=== PATIENT | female | born 1940 | race Caucasian/White ===

== ENCOUNTER 2021-06-27 13:13 | Inpatient (IN) | payer MEDICARE, OTHER ==
--- NOTE | 2021-06-27 13:26 | ED ---
General Adult HPI - General Chief complaint: Neuro Symptoms/Deficit Stated complaint: Stroke Time Seen by Provider: 06/27/21 13:16 Source: EMS, RN notes reviewed, old records reviewed Mode of arrival: EMS Limitations: altered mental status - History of Present Illness Initial comments: Patient is an 80-year-old female with past medical history remarkable for diabetes, hypothyroidism, hypertension, possible seizure disorder, who presents emergency Department as a code stroke. Patient woke up with symptoms. Apparently she was altered, minimally responsive at home. Mental status seems to be improving since arrival, however. She woke up with her symptoms. She is unable to provide much history. She is confused and is unable to follow commands. Patient is not on blood thinners. No known trauma.Baseline is alert and oriented 4. - Related Data Home Medications Medication Instructions Recorded Confirmed Aspirin EC [Ecotrin Low Dose] 81 mg PO DAILY 06/27/21 06/27/21 Atorvastatin Calcium [Lipitor] 80 mg PO W/SUPPER 06/27/21 06/27/21 Cholecalciferol [Vitamin D3 (125 125 mcg PO DAILY 06/27/21 06/27/21 Mcg = 5000 Iu)] DULoxetine HCL [Cymbalta] 60 mg PO BID 06/27/21 06/27/21 Doxepin HCl 50 mg PO HS 06/27/21 06/27/21 Gabapentin 800 mg PO DIRECTED 06/27/21 06/27/21 Glucosamine HCl/Chondroitin Vincent 1 cap PO DAILY 06/27/21 06/27/21 [Glucosamine-Chondroitin Cap] Insulin Glargine,Hum.rec.anlog 30 unit SQ BID@1200,2100 06/27/21 06/27/21 [Lantus Solostar Pen] Insulin Lispro [humaLOG Kwikpen] See Protocol SQ ACHS MDD 60 UNITS 06/27/21 06/27/21 Magnesium 250 mg PO DAILY 06/27/21 06/27/21 Phenytoin Sodium Extended 200 mg PO DIRECTED 06/27/21 06/27/21 [Dilantin] Rivaroxaban [Xarelto] 2.5 mg PO DIRECTED 06/27/21 06/27/21 Triamterene-Hctz 37.5-25Mg 1 tab PO DIRECTED 06/27/21 06/27/21 [Maxzide 37.5-25] atenoloL 100 mg PO HS 06/27/21 06/27/21 Allergies Allergy/AdvReac Type Severity Reaction Status Date / Time codeine Allergy Rash/Hives Verified 06/27/21 14:40 Review of Systems ROS Statement: Those systems with pertinent positive or pertinent negative responses have been documented in the HPI. Unable to obtain secondary to patient's clinical status. ROS Other: All systems not noted in ROS Statement are negative. Past Medical History Past Medical History: Unable to Obtain History of Any Multi-Drug Resistant Organisms: Unobtainable Past Surgical History: Unable to Obtain Past Psychological History: Unable to Obtain Smoking Status: Unknown if ever smoked Past Alcohol Use History: Unable to Obtain Past Drug Use History: Unable to Obtain General Exam - General Exam Comments Initial Comments: General: Appears in mild distress and confused. HEAD: Normal with no signs of head trauma. EYES: PERRLA, EOMI, conjunctiva normal, no discharge. Pupils are 2+ and equal bilaterally. ENT: Hearing grossly intact, normal oropharynx. RESPIRATORY: Clear breath sounds bilaterally. No wheezes, rales, or rhonchi. C/V: Regular rate and rhythm. S1 and S2 auscultated, no edema, peripheral pulses 2+ and intact throughout ABD: Abd is soft, nontender, nondistended EXT: Reduced motion in the right lower extremity, with some effort against gravity. Actively moving all other extremity is. No obvious deformities. SKIN: No rashes or lesions observed on exposed skin. NEURO: Alert but oriented 0. NIH is approximately 8, for right lower extremity weakness, aphasia, being unable to follow commands, being unable to answer month and age. GCS is 15. Limitations: altered mental status Course Vital Signs 06/27/21 06/27/21 06/27/21 13:16 13:20 16:50 Pulse Rate 98 97 63 Respiratory 16 18 18 Rate Blood Pressure 148/95 161/84 133/87 O2 Sat by Pulse 97 97 Oximetry 06/27/21 06/27/21 18:39 19:53 Pulse Rate 81 81 Respiratory 18 19 Rate Blood Pressure 167/81 170/97 O2 Sat by Pulse 97 96 Oximetry Medical Decision Making - Medical Decision Making Patient presents as a wake-up altered mental status, suspect stroke. Patient is not a TPA candidate because of this. The benefits of administering TPA with an unknown onset are far outweighed by the risks of administering it. Therefore patient was made a code stroke. When care sugar was within normal limits. Altered mental status labs were ordered. We will also obtain Dilantin levels, as it does appear she is on a medication. CT imaging will be obtained. I spoke with Dr. Monet neuro intervention who was in agreement this plan. Patient is not a TPA candidate. He did review the CT imaging as stated the radiologist, both CT angiogram and noncontrast CTs showed no acute intracranial processes. Recommended medical management. Patient is given an aspirin. On reevaluation at this time, patient is improved. She is more alert and slight ly more oriented. She is moving all 4 extremities now. NIH is now approximately 1 or 2 primarily for confusion. She is following commands. She cannot recall what happened. Chest x-ray revealed no acute cardiopulmonary process. EKG showed no acute ischemic changes. Laboratory studies were patito rkable for a anion gap metabolic acidosis with a carbon dioxide of 19 and gap of 18. This is likely secondary to lactic acidosis as her lactate is 5.6. Repeat following multiple fluid boluses is 3.6. Troponin is negative. Urinalysis is remarkable for possibly a small urinary tract infection. She'll be started on Rocephin. UDS is positive for opiates. Dilantin level is undetectable. Family arrived at the emergency department. He states that she has been like this since this morning when she woke up. Her mental status now is improved but not back to baseline. She is normally alert and oriented 4. Family his poor historians otherwise. Unaware of medications that she is taking at home or not. I discussed with them that the patient will be admitted at this time for further neurological evaluation. There were no agreement with this plan. I spoke with Dr. Wilson of neurology who will evaluate the patient. He was in agreement with this plan. I also spoke with the admitting team, Dr. Whitley who accepted the patient. Patient was therefore admitted in serious condition. Differential at this time includes possible TIA versus UTI causing her encephalopathy. Cannot rule out postictal state secondary to seizures, she is no longer taking her Dilantin. Lactic acid was elevated which does support this but we will follow up. Repeat lactic acid did return while is still present in the emergency department. As it was still elevated, and she had adequate fluid hydration by this point, I will start her on empiric antibiotics. Vital signs remain within normal limits and stable at this time. Source of infection is likely the urine, however blood cultures were sent. - Lab Data Result diagrams: 06/27/21 13:22 06/27/21 13:22 Lab Results 06/27/21 06/27/21 06/27/21 Range/Units 13:18 13:22 13:22 WBC 6.2 (3.8-10.6) k/uL RBC 4.51 (3.80-5.40) m/uL Hgb 14.9 (11.4-16.0) gm/dL Hct 43.7 (34.0-46.0) % MCV 96.9 (80.0-100.0) fL MCH 33.1 (25.0-35.0) pg MCHC 34.1 (31.0-37.0) g/dL RDW 13.1 (11.5-15.5) % Plt Count 186 (150-450) k/uL MPV 7.9 Neutrophils % 61 % Lymphocytes % 33 % Monocytes % 4 % Eosinophils % 1 % Basophils % 0 % Neutrophils # 3.8 (1.3-7.7) k/uL Lymphocytes # 2.1 (1.0-4.8) k/uL Monocytes # 0.2 (0-1.0) k/uL Eosinophils # 0.0 (0-0.7) k/uL Basophils # 0.0 (0-0.2) k/uL PT 10.0 (9.0-12.0) sec INR 0.9 (<1.2) APTT 20.1 L (22.0-30.0) sec Sodium (137-145) mmol/L Potassium (3.5-5.1) mmol/L Chloride (98-107) mmol/L Carbon Dioxide (22-30) mmol/L Anion Gap mmol/L BUN (7-17) mg/dL Creatinine (0.52-1.04) mg/dL Est GFR (CKD-EPI)AfAm (>60 ml/min/1.73 sqM) Est GFR (CKD-EPI)NonAf (>60 ml/min/1.73 sqM) Glucose (74-99) mg/dL POC Glucose (mg/dL) 214 H (75-99) mg/dL POC Glu [employer] ID [place], Teresa Lactic Ac Sepsis Rflx Plasma Lactic Acid Alex (0.7-2.0) mmol/L Calcium (8.4-10.2) mg/dL Total Bilirubin (0.2-1.3) mg/dL AST (14-36) U/L ALT (4-34) U/L Alkaline Phosphatase (38-126) U/L Ammonia (<30) umol/L Troponin I (0.000-0.034) ng/mL Total Protein (6.3-8.2) g/dL Albumin (3.5-5.0) g/dL Urine Color Urine Appearance (Clear) Urine pH (5.0-8.0) Ur Specific [place] (1.001-1.035) Urine Protein (Negative) Urine Glucose (UA) (Negative) Urine Ketones (Negative) Urine Blood (Negative) Urine Nitrite (Negative) Urine Bilirubin (Negative) Urine Urobilinogen (<2.0) mg/dL Ur Leukocyte Esterase (Negative) Urine RBC (0-5) /hpf Urine WBC (0-5) /hpf Ur Squamous Epith Cells (0-4) /hpf Urine Bacteria (None) /hpf Urine Opiates Screen (NotDetected) Ur Oxycodone Screen (NotDetected) Urine Methadone Screen (NotDetected) Ur Propoxyphene Screen (NotDetected) Ur Barbiturates Screen (NotDetected) Phenytoin ug/mL U Tricyclic Antidepress (NotDetected) Ur Phencyclidine Scrn (NotDetected) Ur Amphetamines Screen (NotDetected) U Methamphetamines Scrn (NotDetected) U Benzodiazepines Scrn (NotDetected) Urine Cocaine Screen (NotDetected) U Marijuana (THC) Screen (NotDetected) 06/27/21 06/27/21 06/27/21 Range/Units 13:22 13:22 13:45 WBC (3.8-10.6) k/uL RBC (3.80-5.40) m/uL Hgb (11.4-16.0) gm/dL Hct (34.0-46.0) % MCV (80.0-100.0) fL MCH (25.0-35.0) pg MCHC (31.0-37.0) g/dL RDW (11.5-15.5) % Plt Count (150-450) k/uL MPV Neutrophils % % Lymphocytes % % Monocytes % % Eosinophils % % Basophils % % Neutrophils # (1.3-7.7) k/uL Lymphocytes # (1.0-4.8) k/uL Monocytes # (0-1.0) k/uL Eosinophils # (0-0.7) k/uL Basophils # (0-0.2) k/uL PT (9.0-12.0) sec INR (<1.2) APTT (22.0-30.0) sec Sodium 140 (137-145) mmol/L Potassium 3.4 L (3.5-5.1) mmol/L Chloride 103 (98-107) mmol/L Carbon Dioxide 19 L (22-30) mmol/L Anion Gap 18 mmol/L BUN 12 (7-17) mg/dL Creatinine 0.75 (0.52-1.04) mg/dL Est GFR (CKD-EPI)AfAm 86 (>60 ml/min/1.73 sqM) Est GFR (CKD-EPI)NonAf 75 (>60 ml/min/1.73 sqM) Glucose 224 H (74-99) mg/dL POC Glucose (mg/dL) (75-99) mg/dL POC Glu [employer] S[employer] ID Lactic Ac Sepsis Rflx Plasma Lactic Acid Alex 5.6 H* (0.7-2.0) mmol/L Calcium 9.8 (8.4-10.2) mg/dL Total Bilirubin 0.6 (0.2-1.3) mg/dL AST 41 H (14-36) U/L ALT 28 (4-34) U/L Alkaline Phosphatase 78 (38-126) U/L Ammonia <9 (<30) umol/L Troponin I <0.012 (0.000-0.034) ng/mL Total Protein 7.6 (6.3-8.2) g/dL Albumin 4.6 (3.5-5.0) g/dL Urine Color Urine Appearance (Clear) Urine pH (5.0-8.0) Ur Specific [place] (1.001-1.035) Urine Protein (Negative) Urine Glucose (UA) (Negative) Urine Ketones (Negative) Urine Blood (Negative) Urine Nitrite (Negative) Urine Bilirubin (Negative) Urine Urobilinogen (<2.0) mg/dL Ur Leukocyte Esterase (Negative) Urine RBC (0-5) /hpf Urine WBC (0-5) /hpf Ur Squamous Epith Cells (0-4) /hpf Urine Bacteria (None) /hpf Urine Opiates Screen (NotDetected) Ur Oxycodone Screen (NotDetected) Urine Methadone Screen (NotDetected) Ur Propoxyphene Screen (NotDetected) Ur Barbiturates Screen (NotDetected) Phenytoin <3.0 ug/mL U Tricyclic Antidepress (NotDetected) Ur Phencyclidine Scrn (NotDetected) Ur Amphetamines Screen (NotDetected) U Methamphetamines Scrn (NotDetected) U Benzodiazepines Scrn (NotDetected) Urine Cocaine Screen (NotDetected) U Marijuana (THC) Screen (NotDetected) 06/27/21 06/27/21 Range/Units 14:07 14:30 WBC (3.8-10.6) k/uL RBC (3.80-5.40) m/uL Hgb (11.4-16.0) gm/dL Hct (34.0-46.0) % MCV (80.0-100.0) fL MCH (25.0-35.0) pg MCHC (31.0-37.0) g/dL RDW (11.5-15.5) % Plt Count (150-450) k/uL MPV Neutrophils % % Lymphocytes % % Monocytes % % Eosinophils % % Basophils % % Neutrophils # (1.3-7.7) k/uL Lymphocytes # (1.0-4.8) k/uL Monocytes # (0-1.0) k/uL Eosinophils # (0-0.7) k/uL Basophils # (0-0.2) k/uL PT (9.0-12.0) sec INR (<1.2) APTT (22.0-30.0) sec Sodium (137-145) mmol/L Potassium (3.5-5.1) mmol/L Chloride (98-107) mmol/L Carbon Dioxide (22-30) mmol/L Anion Gap mmol/L BUN (7-17) mg/dL Creatinine (0.52-1.04) mg/dL Est GFR (CKD-EPI)AfAm (>60 ml/min/1.73 sqM) Est GFR (CKD-EPI)NonAf (>60 ml/min/1.73 sqM) Glucose (74-99) mg/dL POC Glucose (mg/dL) (75-99) mg/dL POC Glu [employer]house Sorter ID Lactic Ac Sepsis Rflx Y Plasma Lactic Acid Alex (0.7-2.0) mmol/L Calcium (8.4-10.2) mg/dL Total Bilirubin (0.2-1.3) mg/dL AST (14-36) U/L ALT (4-34) U/L Alkaline Phosphatase (38-126) U/L Ammonia (<30) umol/L Troponin I (0.000-0.034) ng/mL Total Protein (6.3-8.2) g/dL Albumin (3.5-5.0) g/dL Urine Color Light Yellow Urine Appearance Cloudy H (Clear) Urine pH 6.5 (5.0-8.0) Ur Specific [place] 1.027 (1.001-1.035) Urine Protein Trace H (Negative) Urine Glucose (UA) 3+ H (Negative) Urine Ketones 1+ H (Negative) Urine Blood Small H (Negative) Urine Nitrite Negative (Negative) Urine Bilirubin Negative (Negative) Urine Urobilinogen <2.0 (<2.0) mg/dL Ur Leukocyte Esterase Large H (Negative) Urine RBC 2 (0-5) /hpf Urine WBC 18 H (0-5) /hpf Ur Squamous Epith Cells 4 (0-4) /hpf Urine Bacteria Rare H (None) /hpf Urine Opiates Screen Detected H (NotDetected) Ur Oxycodone Screen Not Detected (NotDetected) Urine Methadone Screen Not Detected (NotDetected) Ur Propoxyphene Screen Not Detected (NotDetected) Ur Barbiturates Screen Not Detected (NotDetected) Phenytoin ug/mL U Tricyclic Antidepress Not Detected (NotDetected) Ur Phencyclidine Scrn Not Detected (NotDetected) Ur Amphetamines Screen Not Detected (NotDetected) U Methamphetamines Scrn Not Detected (NotDetected) U Benzodiazepines Scrn Not Detected (NotDetected) Urine Cocaine Screen Not Detected (NotDetected) U Marijuana (THC) Screen Not Detected (NotDetected) - EKG Data -: EKG Interpreted by Me EKG Comments: 12-lead Electrocardiogram Interpretation Note EKG was reviewed and interpreted by myself. 12-lead ECG performed at 1339 is interpreted by me as revealing normal sinus rhythm with a PVC at a rate of 93 beats per minute. [place] is normal. [place] interval is 201 ms, QRS duration is 92 ms, QTc is 381 ms.. There were no ST or T wave abnormalities to suggest myocardial ischemia or injury. R wave progression across the precordium was satisfactory. By my interpretation this EKG is non-diagnostic for acute ischemia. Critical Care Time Critical Care Time: Yes Total Critical Care Time: 35 Critical Care Time: Upon my evaluation, this patient had a high probability of imminent or life-threatening deterioration due to acute encephalopathy of unknown etiology, likely secondary to seizure versus stroke versus infection, which required my direct attention, intervention, and personal management. I have personally provided 35 minutes of critical care time exclusive of time spent on separately billable procedures. Time includes review of laboratory data, radiology results, discussion with consultants, and monitoring for potential decompensation. Interventions were performed as documented in my note. Disposition Clinical Impression: Encephalopathy, Seizure, TIA (transient ischemic attack), UTI (urinary tract infection), Lactic acidosis, Confusion Disposition: ADMITTED IP TO THIS HOSP Condition: Serious
[2021-06-27 13:32] LABS: Glucose,Whole Blood 214 mg/dL (75-99)
[2021-06-27 13:38] LABS: Basophils % (A) 0 %; Eosinophils % (A) 1 %; HCT 43.7 % (34.0-46.0); HGB 14.9 gm/dL (11.4-16.0); Lymphocytes # (A) 2.1 k/uL (1.0-4.8); Lymphocytes % (A) 33 %; MCH 33.1 pg (25.0-35.0); MCHC 34.1 g/dL (31.0-37.0); MCV 96.9 fL (80.0-100.0); Mean Platelet Volume 7.9; Monocytes # (A) 0.2 k/uL (0-1.0); Monocytes % (A) 4 %; Neutrophils # (A) 3.8 k/uL (1.3-7.7); Neutrophils % (A) 61 %; Platelet Count 186 k/uL (150-450); RBC 4.51 m/uL (3.80-5.40); RDW 13.1 % (11.5-15.5); WBC 6.2 k/uL (3.8-10.6)
--- NOTE | 2021-06-27 13:38 | CT ---
EXAMINATION TYPE: CT brain wo con for TPA DATE OF EXAM: 06/27/2021 HISTORY: altered mental status CT DLP: 1071.8 mGycm. Automated Exposure Control for Dose Reduction was Utilized. TECHNIQUE: CT scan of the head is performed without contrast. COMPARISON: None. FINDINGS: There is no acute intracranial hemorrhage or midline shift identified. There is mild-to-m oderate diffuse ventricular and sulcal prominence consistent with diffuse cerebral atrophy greatest o soheila the bilateral frontal and temporal lobes. There is mild low-attenuation in the periventricular w amaury matter consistent with chronic small vessel ischemic change. There is 1.3 cm mucous retention [address] st or polyp in the posterior superior left maxillary sinus otherwise the globes are intact and the vi sualized sinuses are clear. IMPRESSION: No acute intracranial hemorrhage or midline shift. There is mild to moderate diffuse ce rebral atrophy and mild chronic small vessel ischemic change noted.
[2021-06-27 13:52] LABS: ALT 28 U/L (4-34); AST 41 U/L (14-36); African American GFR (CKD) 86 (>60 ml/min/1.73 sqM); Albumin 4.6 g/dL (3.5-5.0); Alkaline Phosphatase 78 U/L (38-126); Anion Gap 18 mmol/L; Blood Urea Nitrogen 12 mg/dL (7-17); Calcium 9.8 mg/dL (8.4-10.2); Carbon Dioxide 19 mmol/L (22-30); Chloride 103 mmol/L (98-107); Glucose 224 mg/dL (74-99); Non-African American GFR(CKD) 75 (>60 ml/min/1.73 sqM); Phenytoin (Dilantin) <3.0 ug/mL; Potassium 3.4 mmol/L (3.5-5.1); Sodium 140 mmol/L (137-145); Total Bilirubin 0.6 mg/dL (0.2-1.3); Total Protein 7.6 g/dL (6.3-8.2)
--- NOTE | 2021-06-27 13:57 | CT ---
EXAMINATION TYPE: CT angio head neck DATE OF EXAM: 06/27/2021 HISTORY: altered mental status, code stroke COMPARISON: None. CT DLP: 610 mGycm. Automated Exposure Control for Dose Reduction was Utilized. TECHNIQUE: CTA scan of the head and neck are performed with IV Contrast, patient injected with 65 mL of Isovue 370, axial images are obtained, coronal and sagittal reformatted images are reviewed. 3D r econstructed images are created on an independent workstation and reviewed. FINDINGS: Carotid/Vascular Structures: Mild peripheral calcified plaque in the arch. Bovine type aortic arch. N ormal origin right common carotid artery from the brachiocephalic. Tortuous medial course to the bila teral common carotid arteries. Mild to moderate peripheral plaque in the proximal right internal cruz tid artery just past carotid bulb without significant stenosis. Left side shows more moderate to che re calcified plaque causing stenosis approaching but under 50% patent external carotid arteries bilat erally without significant stenosis. There is dominant left vertebral artery with tapering but patent small caliber right vertebral artery to the basilar junction. There is no significant focal stenosis or aneurysm. There are patent bilate ral posterior communicating arteries filling the posterior cerebral arteries. Patent anterior communi cating artery is identified. No aneurysm in the anterior circulation. Other: Multilevel uncovertebral facet degenerative changes bilaterally. Multilevel spurring in the sp ine. IMPRESSION: No significant stenosis in the common or internal carotid arteries. No significant steno sis or aneurysm at level of [place] of [place]. NASCET criteria was used in interpretation of this exam?
[2021-06-27 14:11] LABS: INR 0.9 (<1.2)
[2021-06-27 14:13] LABS: Partial Thromboplastin Time 20.1 sec (22.0-30.0)
[2021-06-27] MEDS ORDERED: PHENYTOIN SODIUM INJ 1,000 MG in SODIUM CHLORIDE 0.9% 100 ML IVPB STA (14:16)
[2021-06-27 14:29] LABS: Lactic Acid, Venous 5.6 mmol/L (0.7-2.0)
[2021-06-27] MEDS ORDERED: SODIUM CHLORIDE 0.9% 1,000 ML IV STA ×3 (14:30→15:06)
[2021-06-27 14:37] LABS: Appearance,Urine Cloudy (Clear); Bacteria,Urine Rare /hpf; Bilirubin,Urine Negative (Negative); Blood,Urine Small (Negative); Color,Urine Light Yellow; Glucose,Urine (UA) 3+ (Negative); Ketones,Urine 1+ (Negative); Leukocyte Esterase,Urine Large (Negative); Nitrite,Urine Negative (Negative); PH, Urine 6.5 (5.0-8.0); Protein,Urine Trace (Negative); RBC,Urine 2 /hpf (0-5); Specific Gravity,Urine 1.027 (1.001-1.035); Squamous Epithelial Cell,Urine 4 /hpf (0-4); Urobilinogen,Urine <2.0 mg/dL (<2.0); WBC,Urine 18 /hpf (0-5)
[2021-06-27 14:40] LABS: Amphetamine Screen,Urine Not Detected (NotDetected); Barbiturate Screen,Urine Not Detected (NotDetected); Benzodiazepines Screen,Urine Not Detected (NotDetected); Cocaine Screen,Urine Not Detected (NotDetected); Methadone Screen, Urine Not Detected (NotDetected); Opiate Screen,Urine Detected (NotDetected); Oxycodone Screen, Urine Not Detected (NotDetected); Phencyclidine Screen,Urine Not Detected (NotDetected); Tricyclic Antidepressant,Urine Not Detected (NotDetected); Urn Cannabinoid Scrn Not Detected (NotDetected)
[2021-06-27] MEDS ORDERED: ASPIRIN 325 MG TAB PO STA (15:08)
[2021-06-27] MEDS ORDERED: LOPERAMIDE 2 MG CAP PO PRN (15:40)
[2021-06-27] MEDS ORDERED: MAG HYDROX/AL HYDROX/SIMETH 30 ML CUP PO PRN (15:40)
[2021-06-27] MEDS ORDERED: NALOXONE 0.4 MG/ML 1 ML VIAL IV PRN (15:40)
[2021-06-27] MEDS ORDERED: ONDANSETRON 4 MG/2 ML VIAL IVP PRN (15:40)
[2021-06-27] MEDS ORDERED: CALCIUM CARBONATE 500 MG CHEWABLE PO PRN (15:40)
[2021-06-27] MEDS ORDERED: LORazepam 2 MG/ML INJ IV PRN (15:40)
[2021-06-27] MEDS ORDERED: ACETAMINOPHEN TAB 325 MG TAB PO PRN (15:40)
--- NOTE | 2021-06-27 15:46 | P.CNNES ---
History of Present Illness Consult date: 06/27/21 Requesting physician: Michele Ramos Reason for Consult: stroke vs seizure History of Present Illness: This is an 80-year-old woman with medical history of possible seizure (per ed team), diabetes mellitus, hypertension, hypothyroidism who presented to the emergency department for altered mental status. History is obtained from ED attending. Per the ED patient to the emergency department as a code stroke and was minimally responsive at home but seems to be improving on arrival. It seems at baseline patient is oriented 4. Upon seeing the patient she continues to be confused and unable to provide history. Patient is at bedside and he is a poor historian. Upon asking him if patient has history of seizure he said he does not know. He said patient was not waking-up today in the AM and had her eyes closed. He said he cannot think right now and could tell me what transpired other than she went to bed possibly at 9pm yesterday. Initially he said she was confused yesterday at night but got worse today in the AM but later he said she was not confused last night. He could not tell me if she was having any jerking of extremities. He could not tell me what medication she is on. Per EMR patient home medication consist of Dilantin 200 mg extended release one tablet twice a day, Xarelto 2.5 mg 1 tablet twice a day, gabapentin 800 mg 1 tablet 3 times a day, Humalog, doxepin, Cymbalta, atenolol, Lipitor 80 mg at supper, triamterene hydrochlorothiazide. Some of the workup in the hospital consisted of: Initial vital signs his blood pressure of 148/95, heart rate of 98, respiratory of 16, pulse ox of 97% at room air. CBC with differential is unremarkable Initial serum glucose is 224, POC glucose 214, creatinine 0.75, sodium is 140, calcium is 9.8, AST is 41, ALT of 28. Ammonia level less than 9. Plasma lactic acid venous 5.6 Urinalysis it's cloudy, the leukocyte esterase was large, urine white blood cell is 18 and urine bacteria was rare. Rule out acute urinary tract infection Urine drug screen is positive for opiate otherwise rests is on detected and the patient the phenytoin level is less than 3.0 PT, PTT and INR is unremarkable. CT of the head is reported as no acute intracranial hemorrhage or midline shift. There is mild to moderate diffuse cerebral atrophy and mild chronic small vessel ischemic changes noted. I personally reviewed the CT of the head and there is no acute or subacute ischemia and there is no intracranial hemorrhage. I agree with the report that. CT angiography of the head and neck is reported as no significant stenosis in the common or internal carotid artery. No significant stenosis or aneurysm at the level [place] of [place]. Per the ED team patient had the altered mental status and the suspected stroke is not a TPA candidate because was awake up stroke and the patient was outside the window Review of Systems Review of system is limited but the per positive and negative as per HPI Past Medical History Past Medical History: Unable to Obtain History of Any Multi-Drug Resistant Organisms: Unobtainable Past Surgical History: Unable to Obtain Past Psychological History: Unable to Obtain Smoking Status: Unknown if ever smoked Past Alcohol Use History: Unable to Obtain Past Drug Use History: Unable to Obtain Medications and Allergies Home Medications Medication Instructions Recorded Confirmed Type Aspirin EC [Ecotrin Low Dose] 81 mg PO DAILY 06/27/21 06/27/21 History Atorvastatin Calcium [Lipitor] 80 mg PO W/SUPPER 06/27/21 06/27/21 History Cholecalciferol [Vitamin D3 (125 125 mcg PO DAILY 06/27/21 06/27/21 History Mcg = 5000 Iu)] DULoxetine HCL [Cymbalta] 60 mg PO BID 06/27/21 06/27/21 History Doxepin HCl 50 mg PO HS 06/27/21 06/27/21 History Gabapentin 800 mg PO DIRECTED 06/27/21 06/27/21 History Glucosamine HCl/Chondroitin Vincent 1 cap PO DAILY 06/27/21 06/27/21 History [Glucosamine-Chondroitin Cap] Insulin Glargine,Hum.rec.anlog 30 unit SQ BID@1200,2100 06/27/21 06/27/21 History [Lantus Solostar Pen] Insulin Lispro [humaLOG Kwikpen] See Protocol SQ ACHS MDD 60 UNITS 06/27/21 06/27/21 History Magnesium 250 mg PO DAILY 06/27/21 06/27/21 History Phenytoin Sodium Extended 200 mg PO DIRECTED 06/27/21 06/27/21 History [Dilantin] Rivaroxaban [Xarelto] 2.5 mg PO DIRECTED 06/27/21 06/27/21 History Triamterene-Hctz 37.5-25Mg 1 tab PO DIRECTED 06/27/21 06/27/21 History [Maxzide 37.5-25] atenoloL 100 mg PO HS 06/27/21 06/27/21 History Allergies Allergy/AdvReac Type Severity Reaction Status Date / Time codeine Allergy Rash/Hives Verified 06/27/21 14:40 Physical Examination - Vital Signs Vital Signs: Vital Signs Pulse Resp BP Pulse Ox 06/27/21 13:20 97 18 161/84 97 06/27/21 13:16 98 16 148/95 Intake and Output 06/26/21 06/27/21 06/27/21 22:59 06:59 14:59 Other: Weight 89.63 kg GENERAL: The patient is lying in bed and seems in mild acute distress. She seems restless. HENT: No nuchal rigidity. CHEST: The heart rate is regular rate rhythm. No murmurs to auscultation. LUNG: Clear to auscultation bilaterally no wheezing noted throughout. Not labored breathing. ABDOMEN/GI: Bowel sounds present in all 4 quadrants. No tenderness to palpation throughout. NEUROLOGICAL: Limited because of her condition. Higher mental function: The patient is awake, alert, oriented to her first name. She is very confused and has garbled speech. She could not name objects. Is following few simple commands. Canial nerves: The pupils are round, equal and reactive to light. Is tracking throughout the room. No facial weakness. No dysarthria. Has dry blood product around her mouth. Otherwise the rest of cranial nerves are limited because of her condition. Motor: Gait is deferred because of cooperation. The strength: Individual muscle is limited in assessing because of cooperation. Patient is able to raise bilateral upper and lower extremities briefly above gravity. Normal tone and bulk. Cerebellum: Could not assess. Sensation: Could not assess. Reflexes (right/left): 1+ throughout. Plantars is questionable upgoing over the right. Mute over the left. Results - Laboratory Findings CBC and BMP: 06/27/21 13:22 06/27/21 13:22 Abnormal Lab Findings: Abnormal Labs 06/27/21 06/27/21 06/27/21 13:18 13:22 13:22 APTT 20.1 L Potassium 3.4 L Carbon Dioxide 19 L Glucose 224 H POC Glucose (mg/dL) 214 H Plasma Lactic Acid Alex AST 41 H Urine Appearance Urine Protein Urine Glucose (UA) Urine Ketones Urine Blood Ur Leukocyte Esterase Urine WBC Urine Bacteria Urine Opiates Screen 06/27/21 06/27/21 13:45 14:07 APTT Potassium Carbon Dioxide Glucose POC Glucose (mg/dL) Plasma Lactic Acid Alex 5.6 H* AST Urine Appearance Cloudy H Urine Protein Trace H Urine Glucose (UA) 3+ H Urine Ketones 1+ H Urine Blood Small H Ur Leukocyte Esterase Large H Urine WBC 18 H Urine Bacteria Rare H Urine Opiates Screen Detected H Assessment and Plan Assessment: Breakthrough seizure (came in confused, dry blood product around the mouth and had elevated lactic acid and her mentation is minimally improving) and appears patient is non-compliant with medication (her Dilantin is subtherapeutic <3.0). History of reported seizure (unable to ascertain that info from ) Diabetes mellitus Hypertension Hypothryoidism Plan: Patient was loaded with Dilantin at thousand milligrams once in the ED. Patient was restarted on her home dose of Dilantin 200 mg extended release 1 tablet twice a day Every 4 hours neuro checks Placed the patient on seizure precautions seizure pads Ordered a routine EEG. There is no EEG in our facility and she is on Dilantin but could not tell me about her medical history and about her reported history of seizure. I ordered MRI of the brain with and without Consulted PT, OT and [employer] are consulted. Every 4 hours neuro checks Urine culture is ordered and is pending. We'll defer the rest of the medical management to the primary team. The plan is discussed with the ED attending and patient's . Thank you for the consultation. Hadley Wilson M.D. Neuro-hospitalist Time with Patient: Greater than 30
--- NOTE | 2021-06-27 15:55 | P.HPIM ---
History of Present Illness H&P Date: 06/27/21 Is an 80-year-old female with past medical history of diabetes hypertension likely A. fib and also remote history of seizures for which she was supposed to take Dilantin apparently patient has not been taking Dilantin as Dilantin level is 0 and has not been filled for the last few months admitted to the hospital with weakness patient went to sleep was doing okay and then was awake with weakness in the left lower extremity and confusion patient currently is able to move her legs awake but still confused review of systems unable to get due to the current condition of the patient Constitutional: Confused weak Eyes: Anicteric sclerae, moist conjunctiva, no lid-lag PERRLA ENMT: NC/AT Oropharynx clear, no erythema, exudates Neck: Supple, FROM, no masses, or JVD No carotid bruits No thyromegaly Lungs: Clear to auscultation Clear to percussion Normal respiratory effort, no accessory muscle use Cardiovascular: Heart regular in rate and rhythm, No murmurs, gallops, or rubs No peripheral edema Abdominal: Soft Nontender, no guarding, rebound or rigidity Abdomen moving with respiration Normoactive bowel sounds No hepatomegaly, No splenomegaly No palpable mass No abdominal wall hernia noted Skin: Normal temperature, tone, texture, turgor No induration No subcutaneous nodules No rash, lesions No ulcers Extremities: No digital cyanosis No clubbing Pedal pulses intact and symmetrical Radial pulses intact and symmetrical Normal gait and station No calf tenderness Psychiatric:Alert and oriented to person, place and time Appropriate affect Intact judgement Neuro: Muscles Strength 5/5 in all 4 extremities Sensation to light touch grossly present throughout Cranial nerves II-XII grossly intact No focal sensory deficits Likely seizures patient has been loaded with Dilantin UTI with likely metabolic encephalopathy and confusion and postictal confusion will continue patient on IV antibiotics MRI of the brain has been ordered Neurology has been consulted Diabetes but the patient on sliding scale insulin Question about history of A. fib resumes resume on to combination Generalized weakness Anxiety Neuropathy Past Medical History Past Medical History: Unable to Obtain History of Any Multi-Drug Resistant Organisms: Unobtainable Past Surgical History: Unable to Obtain Past Psychological History: Unable to Obtain Smoking Status: Unknown if ever smoked Past Alcohol Use History: Unable to Obtain Past Drug Use History: Unable to Obtain Medications and Allergies Home Medications Medication Instructions Recorded Confirmed Type Aspirin EC [Ecotrin Low Dose] 81 mg PO DAILY 06/27/21 06/27/21 History Atorvastatin Calcium [Lipitor] 80 mg PO W/SUPPER 06/27/21 06/27/21 History Cholecalciferol [Vitamin D3 (125 125 mcg PO DAILY 06/27/21 06/27/21 History Mcg = 5000 Iu)] DULoxetine HCL [Cymbalta] 60 mg PO BID 06/27/21 06/27/21 History Doxepin HCl 50 mg PO HS 06/27/21 06/27/21 History Gabapentin 800 mg PO DIRECTED 06/27/21 06/27/21 History Glucosamine HCl/Chondroitin Vincent 1 cap PO DAILY 06/27/21 06/27/21 History [Glucosamine-Chondroitin Cap] Insulin Glargine,Hum.rec.anlog 30 unit SQ BID@1200,2100 06/27/21 06/27/21 History [Lantus Solostar Pen] Insulin Lispro [humaLOG Kwikpen] See Protocol SQ ACHS MDD 60 UNITS 06/27/21 06/27/21 History Magnesium 250 mg PO DAILY 06/27/21 06/27/21 History Phenytoin Sodium Extended 200 mg PO DIRECTED 06/27/21 06/27/21 History [Dilantin] Rivaroxaban [Xarelto] 2.5 mg PO DIRECTED 06/27/21 06/27/21 History Triamterene-Hctz 37.5-25Mg 1 tab PO DIRECTED 06/27/21 06/27/21 History [Maxzide 37.5-25] atenoloL 100 mg PO HS 06/27/21 06/27/21 History Allergies Allergy/AdvReac Type Severity Reaction Status Date / Time codeine Allergy Rash/Hives Verified 06/27/21 14:40 Physical Exam Vitals: Vital Signs Pulse Resp BP Pulse Ox 06/27/21 13:20 97 18 161/84 97 06/27/21 13:16 98 16 148/95 Intake and Output 06/27/21 06/27/21 06/27/21 06:59 14:59 22:59 Other: Weight 89.63 kg Results CBC & Chem 7: 06/27/21 13:22 06/27/21 13:22 Labs: Abnormal Lab Results - Last 24 Hours (Table) 06/27/21 06/27/21 06/27/21 Range/Units 13:18 13:22 13:22 APTT 20.1 L (22.0-30.0) sec Potassium 3.4 L (3.5-5.1) mmol/L Carbon Dioxide 19 L (22-30) mmol/L Glucose 224 H (74-99) mg/dL POC Glucose (mg/dL) 214 H (75-99) mg/dL Plasma Lactic Acid Alex (0.7-2.0) mmol/L AST 41 H (14-36) U/L Urine Appearance (Clear) Urine Protein (Negative) Urine Glucose (UA) (Negative) Urine Ketones (Negative) Urine Blood (Negative) Ur Leukocyte Esterase (Negative) Urine WBC (0-5) /hpf Urine Bacteria (None) /hpf Urine Opiates Screen (NotDetected) 06/27/21 06/27/21 Range/Units 13:45 14:07 APTT (22.0-30.0) sec Potassium (3.5-5.1) mmol/L Carbon Dioxide (22-30) mmol/L Glucose (74-99) mg/dL POC Glucose (mg/dL) (75-99) mg/dL Plasma Lactic Acid Alex 5.6 H* (0.7-2.0) mmol/L AST (14-36) U/L Urine Appearance Cloudy H (Clear) Urine Protein Trace H (Negative) Urine Glucose (UA) 3+ H (Negative) Urine Ketones 1+ H (Negative) Urine Blood Small H (Negative) Ur Leukocyte Esterase Large H (Negative) Urine WBC 18 H (0-5) /hpf Urine Bacteria Rare H (None) /hpf Urine Opiates Screen Detected H (NotDetected)
--- NOTE | 2021-06-27 18:11 | XR ---
EXAMINATION TYPE: XR chest 1V portable DATE OF EXAM: 06/27/2021 COMPARISON: NONE HISTORY: Altered mental status TECHNIQUE: Single view FINDINGS: Heart is normal. There is mild subsegmental atelectasis left lower lobe. There is no pulmon lizeth consolidation or heart failure. Costophrenic angles are clear. There are chest leads. IMPRESSION: Mild subsegmental atelectasis in the left lower lobe.
[2021-06-27 18:51] LABS: Glucose,Whole Blood 274 mg/dL (75-99)
[2021-06-27] MEDS: INSULIN ASPART (NovoLOG) 100 UNIT/ML VIAL SQ SCH (19:01)
[2021-06-27] MEDS: ATORVASTATIN 80 MG TAB PO SCH (19:02)
[2021-06-27] MEDS ORDERED: VANCOMYCIN IV PER PHARMACY 1 EACH MISC MISCELLANE PRN (19:38)
[2021-06-27] MEDS ORDERED: PHENYTOIN SODIUM EXTENDED 100 MG CAP PO SCH (21:00)
[2021-06-27] MEDS ORDERED: VANCOMYCIN 1,500 MG in SODIUM CHLORIDE 0.9% 250 ML IVPB SCH (21:00)
[2021-06-28] MEDS: INSULIN ASPART (NovoLOG) 100 UNIT/ML VIAL SQ SCH ×5 (04:49→20:55)
[2021-06-28] MEDS: atenoloL 50 MG TAB PO SCH ×2 (04:50→20:54)
[2021-06-28] MEDS: CEFEPIME 2 GM in SODIUM CHLORIDE 0.9% 100 ML IVPB SCH ×4 (04:50→20:57)
[2021-06-28] MEDS: RIVAROXABAN 2.5 MG TABLET PO SCH ×3 (04:51→21:33)
[2021-06-28] MEDS: GABAPENTIN 300 MG CAP PO SCH ×3 (04:51→20:55)
[2021-06-28] MEDS: PHENYTOIN SODIUM EXTENDED 100 MG CAP PO SCH ×3 (04:51→20:54)
[2021-06-28] MEDS: DOXEPIN 25 MG CAP PO SCH ×2 (04:51→21:33)
[2021-06-28] MEDS: DULoxetine HCL 60 MG CAPSULE.DR PO SCH ×3 (04:51→20:54)
[2021-06-28 06:33] LABS: Basophils % (A) 0 %; Eosinophils % (A) 0 %; HCT 40.6 % (34.0-46.0); HGB 13.8 gm/dL (11.4-16.0); Lymphocytes # (A) 2.1 k/uL (1.0-4.8); Lymphocytes % (A) 23 %; MCH 32.7 pg (25.0-35.0); MCHC 33.9 g/dL (31.0-37.0); MCV 96.4 fL (80.0-100.0); Mean Platelet Volume 8.5; Monocytes # (A) 0.4 k/uL (0-1.0); Monocytes % (A) 5 %; Neutrophils # (A) 6.5 k/uL (1.3-7.7); Neutrophils % (A) 71 %; Platelet Count 172 k/uL (150-450); RBC 4.21 m/uL (3.80-5.40); RDW 13.1 % (11.5-15.5); WBC 9.2 k/uL (3.8-10.6)
[2021-06-28 06:39] LABS: ALT 28 U/L (4-34); AST 60 U/L (14-36); African American GFR (CKD) >90 (>60 ml/min/1.73 sqM); Albumin 3.6 g/dL (3.5-5.0); Alkaline Phosphatase 57 U/L (38-126); Anion Gap 7 mmol/L; Blood Urea Nitrogen 8 mg/dL (7-17); Calcium 8.6 mg/dL (8.4-10.2); Carbon Dioxide 25 mmol/L (22-30); Chloride 105 mmol/L (98-107); Glucose 225 mg/dL (74-99); Non-African American GFR(CKD) 85 (>60 ml/min/1.73 sqM); Potassium 3.3 mmol/L (3.5-5.1); Sodium 137 mmol/L (137-145); Total Protein 6.4 g/dL (6.3-8.2)
[2021-06-28] MEDS ORDERED: VANCOMYCIN 1,500 MG in SODIUM CHLORIDE 0.9% 250 ML IVPB ONE (09:00)
--- NOTE | 2021-06-28 09:05 | P.PN ---
Subjective Progress Note Date: 06/28/21 Principal diagnosis: Patient is still confused but more alert today and oriented Is an 80-year-old female with past medical history of diabetes hypertension likely A. fib and also remote history of seizures for which she was supposed to take Dilantin apparently patient has not been taking Dilantin as Dilantin level is 0 and has not been filled for the last few months admitted to the hospital with weakness patient went to sleep was doing okay and then was awake with weakness in the left lower extremity and confusion patient currently is able to move her legs awake but still confused review of systems unable to get due to the current condition of the patient Constitutional: Confused weak Eyes: Anicteric sclerae, moist conjunctiva, no lid-lag PERRLA ENMT: NC/AT Oropharynx clear, no erythema, exudates Neck: Supple, FROM, no masses, or JVD No carotid bruits No thyromegaly Lungs: Clear to auscultation Clear to percussion Normal respiratory effort, no accessory muscle use Cardiovascular: Heart regular in rate and rhythm, No murmurs, gallops, or rubs No peripheral edema Abdominal: Soft Nontender, no guarding, rebound or rigidity Abdomen moving with respiration Normoactive bowel sounds No hepatomegaly, No splenomegaly No palpable mass No abdominal wall hernia noted Skin: Normal temperature, tone, texture, turgor No induration No subcutaneous nodules No rash, lesions No ulcers Extremities: No digital cyanosis No clubbing Pedal pulses intact and symmetrical Radial pulses intact and symmetrical Normal gait and station No calf tenderness Psychiatric:Alert and oriented to person, place and time Appropriate affect Intact judgement Neuro: Muscles Strength 5/5 in all 4 extremities Sensation to light touch grossly present throughout Cranial nerves II-XII grossly intact No focal sensory deficits Likely seizures patient has been loaded with Dilantin UTI with likely metabolic encephalopathy and confusion and postictal confusion will continue patient on IV antibiotics MRI of the brain has been ordered Neurology has been consulted Diabetes but the patient on sliding scale insulin Question about history of A. fib resumes resume on to combination Generalized weakness Anxiety Neuropathy Overall appears to be slowly improving continue to be confused to be monitored further Objective - Vital Signs Vital signs: Vital Signs Temp 99.8 F H 06/28/21 07:45 Pulse 72 06/28/21 07:45 Resp 18 06/28/21 07:45 BP 130/84 06/28/21 07:45 Pulse Ox 97 06/28/21 07:45 Intake & Output 06/27/21 06/28/21 06/28/21 18:59 06:59 18:59 Weight 89.63 kg - Labs CBC & Chem 7: 06/28/21 05:39 06/28/21 05:39 Labs: Abnormal Lab Results - Last 24 Hours (Table) 06/27/21 06/27/21 06/27/21 Range/Units 13:18 13:22 13:22 APTT 20.1 L (22.0-30.0) sec Potassium 3.4 L (3.5-5.1) mmol/L Carbon Dioxide 19 L (22-30) mmol/L Glucose 224 H (74-99) mg/dL POC Glucose (mg/dL) 214 H (75-99) mg/dL Plasma Lactic Acid Alex (0.7-2.0) mmol/L AST 41 H (14-36) U/L Troponin I (0.000-0.034) ng/mL Urine Appearance (Clear) Urine Protein (Negative) Urine Glucose (UA) (Negative) Urine Ketones (Negative) Urine Blood (Negative) Ur Leukocyte Esterase (Negative) Urine WBC (0-5) /hpf Urine Bacteria (None) /hpf Urine Opiates Screen (NotDetected) 06/27/21 06/27/21 06/27/21 Range/Units 13:45 14:07 16:18 APTT (22.0-30.0) sec Potassium (3.5-5.1) mmol/L Carbon Dioxide (22-30) mmol/L Glucose (74-99) mg/dL POC Glucose (mg/dL) (75-99) mg/dL Plasma Lactic Acid Alex 5.6 H* (0.7-2.0) mmol/L AST (14-36) U/L Troponin I 0.043 H* (0.000-0.034) ng/mL Urine Appearance Cloudy H (Clear) Urine Protein Trace H (Negative) Urine Glucose (UA) 3+ H (Negative) Urine Ketones 1+ H (Negative) Urine Blood Small H (Negative) Ur Leukocyte Esterase Large H (Negative) Urine WBC 18 H (0-5) /hpf Urine Bacteria Rare H (None) /hpf Urine Opiates Screen Detected H (NotDetected) 06/27/21 06/27/21 06/27/21 Range/Units 18:48 19:06 19:56 APTT (22.0-30.0) sec Potassium (3.5-5.1) mmol/L Carbon Dioxide (22-30) mmol/L Glucose (74-99) mg/dL POC Glucose (mg/dL) 274 H (75-99) mg/dL Plasma Lactic Acid Alex 3.6 H* (0.7-2.0) mmol/L AST (14-36) U/L Troponin I 0.081 H* (0.000-0.034) ng/mL Urine Appearance (Clear) Urine Protein (Negative) Urine Glucose (UA) (Negative) Urine Ketones (Negative) Urine Blood (Negative) Ur Leukocyte Esterase (Negative) Urine WBC (0-5) /hpf Urine Bacteria (None) /hpf Urine Opiates Screen (NotDetected) 06/27/21 06/28/21 Range/Units 22:24 05:39 APTT (22.0-30.0) sec Potassium 3.3 L (3.5-5.1) mmol/L Carbon Dioxide (22-30) mmol/L Glucose 225 H (74-99) mg/dL POC Glucose (mg/dL) (75-99) mg/dL Plasma Lactic Acid Alex 3.5 H* (0.7-2.0) mmol/L AST 60 H (14-36) U/L Troponin I (0.000-0.034) ng/mL Urine Appearance (Clear) Urine Protein (Negative) Urine Glucose (UA) (Negative) Urine Ketones (Negative) Urine Blood (Negative) Ur Leukocyte Esterase (Negative) Urine WBC (0-5) /hpf Urine Bacteria (None) /hpf Urine Opiates Screen (NotDetected) Microbiology - Last 24 Hours (Table) 06/27/21 14:07 Urine Culture - Preliminary Urine,Voided
[2021-06-28 09:37] LABS: Chol/HDL Ratio 3.98 Ratio; LDL Cholesterol,Calculated 107.7 mg/dL (0.0-131.0)
--- NOTE | 2021-06-28 09:42 | P.PN ---
Subjective Progress Note Date: 06/28/21 The patient is seen at bedside and stated she is doing better compared to initial presentation. Per nurse no further seizure-like activity. Patient is a poor historian and could not tell me anything about her history of seizures. Upon asking her if she takes dilantin at home she would not give me a clear answer. She said she does not follow-up with a neurologist. Objective - Vital Signs Vital signs: Vital Signs Temp 99.8 F H 06/28/21 07:45 Pulse 72 06/28/21 07:45 Resp 18 06/28/21 07:45 BP 130/84 06/28/21 07:45 Pulse Ox 97 06/28/21 07:45 Intake & Output 06/27/21 06/28/21 06/28/21 18:59 06:59 18:59 Weight 89.63 kg - Exam GENERAL: The patient is lying in bed and is not in acute distress. NEUROLOGICAL: Higher mental function: The patient is awake, alert, oriented to self and correctly stated she was in the hospital but stated she was at [facility]. She co rrectly stated the month but stated the year is 1981. Patient is following simple commands. No aphasia and no neglect. Cranial nerves: The pupils are round, equal and reactive to light. Visual fiel ds are full to confrontation throughout. Extraocular movement is intact no nystagmus is noted. Facial sensation is normal to touch throughout. The facial strength is normal throughout. Tongue is midline and moved [id number] without any difficulty. No dysarthria is noted. Shoulder shrug is normal bilaterally. Motor: The strength is 5 over 5 throughout. Normal tone and bulk. Cerebellum: Normal finger to nose bilaterally. Sensation: Sensation is normal to touch throughout. WORK-UP: CBC with differential is unremarkable Initial serum glucose is 224, POC glucose 214, creatinine 0.75, sodium is 140, calcium is 9.8, AST is 41, ALT of 28. Ammonia level less than 9. Plasma lactic acid venous 5.6 on presentation and most current is 1.6 Lipid panel is still triglyceride 124, cholesterol 177, LDLs 107 and HDL 44. Urine drug screen is positive for opiate otherwise rests is on detected and the patient the phenytoin level is less than 3.0 CT of the head is reported as no acute intracranial hemorrhage or midline shift. There is mild to moderate diffuse cerebral atrophy and mild chronic small vessel ischemic changes noted. I personally reviewed the CT of the head and there is no acute or subacute ischemia and there is no intracranial hemorrhage. I agree with the report that. CT angiography of the head and neck is reported as no significant stenosis in the common or internal carotid artery. No significant stenosis or aneurysm at the level [place]. - Labs CBC & Chem 7: 06/28/21 05:39 06/28/21 05:39 Labs: Abnormal Lab Results - Last 24 Hours (Table) 06/27/21 06/27/21 06/27/21 Range/Units 13:18 13:22 13:22 APTT 20.1 L (22.0-30.0) sec Potassium 3.4 L (3.5-5.1) mmol/L Carbon Dioxide 19 L (22-30) mmol/L Glucose 224 H (74-99) mg/dL POC Glucose (mg/dL) 214 H (75-99) mg/dL Plasma Lactic Acid Alex (0.7-2.0) mmol/L AST 41 H (14-36) U/L Troponin I (0.000-0.034) ng/mL Urine Appearance (Clear) Urine Protein (Negative) Urine Glucose (UA) (Negative) Urine Ketones (Negative) Urine Blood (Negative) Ur Leukocyte Esterase (Negative) Urine WBC (0-5) /hpf Urine Bacteria (None) /hpf Urine Opiates Screen (NotDetected) 06/27/21 06/27/21 06/27/21 Range/Units 13:45 14:07 16:18 APTT (22.0-30.0) sec Potassium (3.5-5.1) mmol/L Carbon Dioxide (22-30) mmol/L Glucose (74-99) mg/dL POC Glucose (mg/dL) (75-99) mg/dL Plasma Lactic Acid Alex 5.6 H* (0.7-2.0) mmol/L AST (14-36) U/L Troponin I 0.043 H* (0.000-0.034) ng/mL Urine Appearance Cloudy H (Clear) Urine Protein Trace H (Negative) Urine Glucose (UA) 3+ H (Negative) Urine Ketones 1+ H (Negative) Urine Blood Small H (Negative) Ur Leukocyte Esterase Large H (Negative) Urine WBC 18 H (0-5) /hpf Urine Bacteria Rare H (None) /hpf Urine Opiates Screen Detected H (NotDetected) 06/27/21 06/27/21 06/27/21 Range/Units 18:48 19:06 19:56 APTT (22.0-30.0) sec Potassium (3.5-5.1) mmol/L Carbon Dioxide (22-30) mmol/L Glucose (74-99) mg/dL POC Glucose (mg/dL) 274 H (75-99) mg/dL Plasma Lactic Acid Alex 3.6 H* (0.7-2.0) mmol/L AST (14-36) U/L Troponin I 0.081 H* (0.000-0.034) ng/mL Urine Appearance (Clear) Urine Protein (Negative) Urine Glucose (UA) (Negative) Urine Ketones (Negative) Urine Blood (Negative) Ur Leukocyte Esterase (Negative) Urine WBC (0-5) /hpf Urine Bacteria (None) /hpf Urine Opiates Screen (NotDetected) 06/27/21 06/28/21 Range/Units 22:24 05:39 APTT (22.0-30.0) sec Potassium 3.3 L (3.5-5.1) mmol/L Carbon Dioxide (22-30) mmol/L Glucose 225 H (74-99) mg/dL POC Glucose (mg/dL) (75-99) mg/dL Plasma Lactic Acid Alex 3.5 H* (0.7-2.0) mmol/L AST 60 H (14-36) U/L Troponin I (0.000-0.034) ng/mL Urine Appearance (Clear) Urine Protein (Negative) Urine Glucose (UA) (Negative) Urine Ketones (Negative) Urine Blood (Negative) Ur Leukocyte Esterase (Negative) Urine WBC (0-5) /hpf Urine Bacteria (None) /hpf Urine Opiates Screen (NotDetected) Microbiology - Last 24 Hours (Table) 06/27/21 14:07 Urine Culture - Preliminary Urine,Voided Assessment and Plan Assessment: Breakthrough seizure (came in confused, dry blood product around the mouth and had elevated lactic acid and her mentation is minimally improving) and appears patient is non-compliant with medication (her Dilantin is subtherapeutic <3.0). History of reported seizure (unable to ascertain that info from ) Diabetes mellitus Hypertension Hypothryoidism Plan: Continue home dose of Dilantin 200 mg extended release 1 tablet twice a day Every 4 hours neuro checks Continue seizure precautions seizure pads Ordered a routine EEG and is pending. There is no EEG in our facility and she is on Dilantin but could not tell me about her medical history and about her reported history of seizure. MRI of the brain with and without is pending. Consulted PT, OT and DEAL ARCHITECT are consulted. Every 4 hours neuro checks Urine culture is ordered and is pending. We'll defer the rest of the medical management to the primary team. Per [place] DMV, patient cannot drive for 6 months unless she is seizure free. To avoid heights, heavy machinery or swim unassisted. Upon discharge, recommend patient to follow-up with a neurologist as outpatient within 1-2 weeks. Of note it is hard to get patient seizure history since unable to retrieve those from patient or her significant other. Will attempt to contact other family members. UPDATE: Routine EEG: It is abnormal. The background slowing is suggestive of mild to moderate encephalopathy. There is no focal slowing, epileptiform discharges or seizures on the EEG. MRI Brain w/ and w/o seizure protocol: Mild to moderate deggenerative change with nonspecific white matter changes most typical remote white matter microvascular ischemia. I spoke with the patient's son (Nikita) and he stated that his mother had seizure in 1984 or 1989 and it was witnessed it by his sister. She was taken Hospital ( ?[facility]). She was started on Dilantin he is unsure if patient continues to take it and when last time she takes it but stated she was on it for a long time. Unsure if patient is seen by a neurologist. She has chronic back pain and knee pain. She uses a walker and cane at home. The patient resides with her . I notified him that patient needs to follow-up with a neurologist. I ordered 2.5 hour EEG ambulatory EEG as outpatient and it is coordinated by boiler testing technician. The plan is discussed with patient's nurse. Hadley Wilson M.D. Neuro-hospitalist Time with Patient: Less than 30
--- NOTE | 2021-06-28 11:28 | MR ---
EXAMINATION TYPE: MR brain wo/w con DATE OF EXAM: 06/28/2021 COMPARISON: CT scan 06/27/2019 HISTORY: seizure, confusion TECHNIQUE: Multiplanar, multisequence images of the brain and brainstem is performed without and with IV contras t, utilizing 9 mL intravenous Gadavist . FINDINGS: Diffusion weighted images demonstrate no evidence of a recent infarct or other diffusion ab normality. There is mild to moderate generalized degenerative change. Diffuse and focal areas of whi te matter signal are nonspecific. Changes of chronic left mastoiditis.. Midline structures demonstrate normal morphology. The craniocervical junction appears within normal limits. Post contrast images demonstrate no abnormal enhancement. The dural venous sinuses appear pa tent. Changes of chronic sinusitis noted. IMPRESSION: 1. Mild to moderate degenerative change with nonspecific white matter changes most typical remote whi te matter microvascular ischemia.
[2021-06-28 11:42] LABS: Glucose,Whole Blood 275 mg/dL (75-99)
[2021-06-28] MEDS: ASPIRIN 81 MG PO SCH (11:48)
--- NOTE | 2021-06-28 13:27 | EEG ---
ELECTROENCEPHALOGRAM REPORT DATE OF SERVICE: 06/28/2021. CLINICAL HISTORY: This is an 80-year-old woman with reported history of seizure who presented to the ED on 06/27/2021 for suspected breakthrough seizure. The video EEG is obtained to evaluate for seizure epileptiform activity. RELEVANT MEDICATION: Dilantin. EEG TYPE: A routine 21-channel EEG is performed with video using the 10/20 electrode placement system. DESCRIPTION: Wakefulness is only obtained. During awake state the background consists of low to moderate voltage that is well modulated and well sustained of 6.5 to 7.5 hertz activity. At times the background consists of low to moderate voltage nonrhythmic diffuse delta activity. There is no physiological stage II sleep architecture. There is no focal slowing. Interictal and ictal is none. ACTIVATION PROCEDURE: Photic stimulation did not evoke a posterior driving response. There is no abnormality during the photic stimulation. Hyperventilation was not performed. CLINICAL INTERPRETATION: This is an abnormal routine EEG. The background slowing is suggestive of mild to moderate encephalopathy. There is no focal slowing, epileptiform discharge or seizure on the EEG. Clinical correlation is recommended. MMODL / IJN: [id number] / MTDD
[2021-06-28 16:31] LABS: Glucose,Whole Blood 268 mg/dL (75-99)
[2021-06-28] MEDS: ATORVASTATIN 80 MG TAB PO SCH (17:15)
[2021-06-28 19:59] LABS: Glucose,Whole Blood 286 mg/dL (75-99)
[2021-06-28] MEDS: VANCOMYCIN 1,500 MG in SODIUM CHLORIDE 0.9% 250 ML IVPB SCH (20:57)
[2021-06-28] MEDS ORDERED: VANCOMYCIN 1,500 MG in SODIUM CHLORIDE 0.9% 250 ML IVPB SCH (22:00)
[2021-06-29] MEDS ORDERED: hydrALAZINE HCL 25 MG TAB PO STA (04:36)
[2021-06-29] MEDS: CEFEPIME 2 GM in SODIUM CHLORIDE 0.9% 100 ML IVPB SCH ×3 (04:54→19:32)
[2021-06-29 06:14] LABS: Glucose,Whole Blood 266 mg/dL (75-99)
[2021-06-29] MEDS: INSULIN ASPART (NovoLOG) 100 UNIT/ML VIAL SQ SCH ×4 (06:41→20:03)
[2021-06-29] MEDS: RIVAROXABAN 2.5 MG TABLET PO SCH ×2 (08:22→20:42)
[2021-06-29] MEDS: GABAPENTIN 300 MG CAP PO SCH ×2 (08:23→20:03)
[2021-06-29] MEDS: ASPIRIN 81 MG PO SCH (08:23)
[2021-06-29] MEDS: PHENYTOIN SODIUM EXTENDED 100 MG CAP PO SCH ×2 (08:23→20:43)
[2021-06-29] MEDS: VANCOMYCIN 1,500 MG in SODIUM CHLORIDE 0.9% 250 ML IVPB SCH ×2 (08:23→19:55)
[2021-06-29] MEDS: DULoxetine HCL 60 MG CAPSULE.DR PO SCH ×2 (08:23→20:03)
[2021-06-29 08:31] LABS: Basophils % (A) 0 %; Eosinophils # (A) 0.1 k/uL (0-0.7); Eosinophils % (A) 1 %; HCT 46.8 % (34.0-46.0); HGB 15.4 gm/dL (11.4-16.0); Lymphocytes # (A) 2.1 k/uL (1.0-4.8); Lymphocytes % (A) 22 %; MCH 32.2 pg (25.0-35.0); MCHC 32.9 g/dL (31.0-37.0); MCV 97.7 fL (80.0-100.0); Mean Platelet Volume 8.4; Monocytes # (A) 0.5 k/uL (0-1.0); Monocytes % (A) 6 %; Neutrophils # (A) 6.6 k/uL (1.3-7.7); Neutrophils % (A) 70 %; Platelet Count 202 k/uL (150-450); RBC 4.79 m/uL (3.80-5.40); RDW 12.3 % (11.5-15.5); WBC 9.4 k/uL (3.8-10.6)
[2021-06-29 09:03] LABS: ALT 39 U/L (4-34); AST 99 U/L (14-36); African American GFR (CKD) >90 (>60 ml/min/1.73 sqM); Albumin 3.9 g/dL (3.5-5.0); Alkaline Phosphatase 61 U/L (38-126); Anion Gap 6 mmol/L; Blood Urea Nitrogen 10 mg/dL (7-17); Calcium 9.2 mg/dL (8.4-10.2); Carbon Dioxide 32 mmol/L (22-30); Chloride 101 mmol/L (98-107); Glucose 262 mg/dL (74-99); Non-African American GFR(CKD) 81 (>60 ml/min/1.73 sqM); Potassium 2.8 mmol/L (3.5-5.1); Sodium 139 mmol/L (137-145); Total Bilirubin 1.2 mg/dL (0.2-1.3); Total Protein 6.8 g/dL (6.3-8.2)
--- NOTE | 2021-06-29 10:35 | P.PN ---
Subjective Progress Note Date: 06/29/21 Patient still confused but improving significantly Is an 80-year-old female with past medical history of diabetes hypertension likely A. fib and also remote history of seizures for which she was supposed to take Dilantin apparently patient has not been taking Dilantin as Dilantin level is 0 and has not been filled for the last few months admitted to the hospital with weakness patient went to sleep was doing okay and then was awake with weakness in the left lower extremity and confusion patient currently is able to move her legs awake but still confused review of systems unable to get due to the current condition of the patient Constitutional: Confused weak Eyes: Anicteric sclerae, moist conjunctiva, no lid-lag PERRLA ENMT: NC/AT Oropharynx clear, no erythema, exudates Neck: Supple, FROM, no masses, or JVD No carotid bruits No thyromegaly Lungs: Clear to auscultation Clear to percussion Normal respiratory effort, no accessory muscle use Cardiovascular: Heart regular in rate and rhythm, No murmurs, gallops, or rubs No peripheral edema Abdominal: Soft Nontender, no guarding, rebound or rigidity Abdomen moving with respiration Normoactive bowel sounds No hepatomegaly, No splenomegaly No palpable mass No abdominal wall hernia noted Skin: Normal temperature, tone, texture, turgor No induration No subcutaneous nodules No rash, lesions No ulcers Extremities: No digital cyanosis No clubbing Pedal pulses intact and symmetrical Radial pulses intact and symmetrical Normal gait and station No calf tenderness Psychiatric:Alert and oriented to person, place and time Appropriate affect Intact judgement Neuro: Muscles Strength 5/5 in all 4 extremities Sensation to light touch grossly present throughout Cranial nerves II-XII grossly intact No focal sensory deficits Likely seizures patient has been loaded with Dilantin UTI with likely metabolic encephalopathy and confusion and postictal confusion will continue patient on IV antibiotics MRI of the brain has been ordered Diabetes but the patient on sliding scale insulin Question about history of A. fib resumes resume on to combination Generalized weakness Anxiety Neuropathy Overall appears to be slowly improving continue to be confused to be monitored further Patient mental status is improving daily but continues to be having episodes of confusion will continue to monitor for another day or 2 Objective - Vital Signs Vital signs: Vital Signs Temp 97.8 F 06/29/21 08:20 Pulse 61 06/29/21 08:20 Resp 18 06/29/21 08:20 BP 186/100 06/29/21 08:20 Pulse Ox 96 06/29/21 08:20 Intake & Output 06/28/21 06/29/21 06/29/21 18:59 06:59 18:59 Intake Total 360 Output Total 880 900 Balance -520 -900 Weight 89.63 kg Intake: Oral 360 Output: Urine 880 900 Stool 0 Urine/Stool Mix 0 Other: Voiding Method Toilet External Catheter # Voids 0 1 # Bowel Movements 0 - Labs CBC & Chem 7: 06/29/21 08:11 06/29/21 08:11 Labs: Abnormal Lab Results - Last 24 Hours (Table) 06/28/21 06/28/21 06/28/21 Range/Units 11:40 15:20 16:30 Hct (34.0-46.0) % Potassium (3.5-5.1) mmol/L Carbon Dioxide (22-30) mmol/L Glucose (74-99) mg/dL POC Glucose (mg/dL) 275 H 268 H (75-99) mg/dL AST (14-36) U/L ALT (4-34) U/L Free Phenytoin <0.8 L (0.8-2.0) ug/mL 06/28/21 06/29/21 06/29/21 Range/Units 19:58 06:13 08:11 Hct 46.8 H (34.0-46.0) % Potassium (3.5-5.1) mmol/L Carbon Dioxide (22-30) mmol/L Glucose (74-99) mg/dL POC Glucose (mg/dL) 286 H 266 H (75-99) mg/dL AST (14-36) U/L ALT (4-34) U/L Free Phenytoin (0.8-2.0) ug/mL 06/29/21 Range/Units 08:11 Hct (34.0-46.0) % Potassium 2.8 L (3.5-5.1) mmol/L Carbon Dioxide 32 H (22-30) mmol/L Glucose 262 H (74-99) mg/dL POC Glucose (mg/dL) (75-99) mg/dL AST 99 H (14-36) U/L ALT 39 H (4-34) U/L Free Phenytoin (0.8-2.0) ug/mL Microbiology - Last 24 Hours (Table) 06/27/21 13:45 Blood Culture - Preliminary Blood No Growth after 24 hours 06/27/21 13:30 Blood Culture - Preliminary Blood No Growth after 24 hours
[2021-06-29] MEDS ORDERED: POTASSIUM CHLORIDE ER 20 MEQ TAB.ER PO STA (10:40)
--- NOTE | 2021-06-29 13:22 | P.PN ---
Subjective Progress Note Date: 06/29/21 The patient is seen at bedside and she feels she is doing better. Per nurse no further seizures. Objective - Vital Signs Vital signs: Vital Signs Temp 98.0 F 06/29/21 12:37 Pulse 64 06/29/21 12:37 Resp 18 06/29/21 12:37 BP 156/74 06/29/21 12:37 Pulse Ox 97 06/29/21 12:37 Intake & Output 06/28/21 06/29/21 06/29/21 18:59 06:59 18:59 Intake Total 360 600 Output Total 546 704 5919 Balance -520 -900 -600 Weight 89.63 kg Intake: Oral 360 600 Output: Urine 664 344 9996 Stool 0 Urine/Stool Mix 0 Other: Voiding Method Toilet External Catheter External Catheter # Voids 0 1 # Bowel Movements 0 - Exam GENERAL: The patient is lying in bed and is not in acute distress. NEUROLOGICAL: Higher mental function: The patient is awake, alert, oriented to self and correctly stated she was in the hospital but stated she was at [place]. She correctly stated the month but stated the year is 1981. Patient is following simple commands. No aphasia and no neglect. Cranial nerves: The pupils are round, equal and reactive to light. Visual bal[place] are full to confrontation throughout. Extraocular movement is intact no nystagmus is noted. Facial sensation is normal to touch throughout. The facial strength is normal throughout. Tongue is midline and moved [id number] without any difficulty. No dysarthria is noted. Shoulder shrug is normal bilaterally. Motor: The strength is 5 over 5 throughout. Normal tone and bulk. Cerebellum: Normal finger to nose bilaterally. Sensation: Sensation is normal to touch throughout. WORK-UP: CBC with differential is unremarkable Initial serum glucose is 224, POC glucose 214, creatinine 0.75, sodium is 140, calcium is 9.8, AST is 41, ALT of 28. Ammonia level less than 9. Plasma lactic acid venous 5.6 on presentation and most current is 1.6 Lipid panel is still triglyceride 124, cholesterol 177, LDLs 107 and HDL 44. Urine drug screen is positive for opiate otherwise rests is on detected and the patient the phenytoin level is less than 3.0 Repeat Dilantin level is 9.4 which is on the border of therapeutic level the normal is between 10 and 20 Free T4 is less than 0.8 CT of the head is reported as no acute intracranial hemorrhage or midline shift. There is mild to moderate diffuse cerebral atrophy and mild chronic small vessel ischemic changes noted. I personally reviewed the CT of the head and there is no acute or subacute ischemia and there is no intracranial hemorrhage. I agree with the report that. CT angiography of the head and neck is reported as no significant stenosis in the common or internal carotid artery. No significant stenosis or aneurysm at the level [place]. Routine EEG on 06/28/2021 is abnormal. The background slowing suggestive of mild to moderate encephalopathy. There is no focal slowing, epileptiform discharges or seizure on the EEG. MRI of the brain with and without seizure protocol is reported as mild to moderate degenerative change with nonspecific white matter changes most typical remote white matter microvascular ischemia. There is no abnormal enhancement. The dural venous sinuses appear patent in the body report. I personally reviewed the MRI of the brain and I agree with the report. - Labs CBC & Chem 7: 06/29/21 08:11 06/29/21 08:11 Labs: Abnormal Lab Results - Last 24 Hours (Table) 06/28/21 06/28/21 06/28/21 Range/Units 15:20 16:30 19:58 Hct (34.0-46.0) % Potassium (3.5-5.1) mmol/L Carbon Dioxide (22-30) mmol/L Glucose (74-99) mg/dL POC Glucose (mg/dL) 268 H 286 H (75-99) mg/dL AST (14-36) U/L ALT (4-34) U/L Free Phenytoin <0.8 L (0.8-2.0) ug/mL 06/29/21 06/29/21 06/29/21 Range/Units 06:13 08:11 08:11 Hct 46.8 H (34.0-46.0) % Potassium 2.8 L (3.5-5.1) mmol/L Carbon Dioxide 32 H (22-30) mmol/L Glucose 262 H (74-99) mg/dL POC Glucose (mg/dL) 266 H (75-99) mg/dL AST 99 H (14-36) U/L ALT 39 H (4-34) U/L Free Phenytoin (0.8-2.0) ug/mL Microbiology - Last 24 Hours (Table) 06/27/21 13:45 Blood Culture - Preliminary Blood No Growth after 24 hours 06/27/21 13:30 Blood Culture - Preliminary Blood No Growth after 24 hours Assessment and Plan Assessment: Breakthrough seizure (came in confused, dry blood product around the mouth and had elevated lactic acid and her mentation is minimally improving) and appears patient is non-compliant with medication (her Dilantin is subtherapeutic <3.0). History of seizure (per son she has seizure either in 1984 or 1989) and was on Dilantin for years. She had seizure work-up in past at different outside facility. Unsure when patient stopped Dilantin per son. Diabetes mellitus Hypertension Hypothryoidism Plan: Continue home dose of Dilantin 200 mg extended release 1 tablet twice a day I ordered 2.5 hour EEG ambulatory EEG as outpatient and it is coordinated by solids control technician. Every 4 hours neuro checks Continue seizure precautions seizure pads Consulted PT, OT and ASTROCHEMIST are consulted. Every 4 hours neuro checks Urine culture is ordered and is pending. We'll defer the rest of the medical management to the primary team. Per [place] DMV, patient cannot drive for 6 months unless she is seizure free. To avoid heights, heavy machinery or swim unassisted. Upon discharge, recommend patient to follow-up with a neurologist as outpatient within 1-2 weeks. The plan is discussed with patient's nurse and discussed with her son (Nikita). There is no further neurological work-up. Patient is clear from neurological perspective. Hadley Wilson M.D. Neuro-hospitalist Time with Patient: Less than 30
[2021-06-29 17:34] LABS: Glucose,Whole Blood 303 mg/dL (75-99)
[2021-06-29] MEDS: ATORVASTATIN 80 MG TAB PO SCH (17:42)
[2021-06-29 20:02] LABS: Glucose,Whole Blood 312 mg/dL (75-99)
[2021-06-29] MEDS: atenoloL 50 MG TAB PO SCH (20:03)
[2021-06-29] MEDS: DOXEPIN 25 MG CAP PO SCH (20:42)
[2021-06-30] MEDS: CEFEPIME 2 GM in SODIUM CHLORIDE 0.9% 100 ML IVPB SCH ×2 (04:00→13:16)
[2021-06-30 04:27] VITALS: TEMP 98.4
[2021-06-30] MEDS ORDERED: VANCOMYCIN TROUGH DUE 1 EACH MISC MISCELLANE ONE (07:00)
[2021-06-30 07:12] LABS: Glucose,Whole Blood 322 mg/dL (75-99)
[2021-06-30 07:13] LABS: Basophils % (A) 1 %; Eosinophils # (A) 0.3 k/uL (0-0.7); Eosinophils % (A) 3 %; HCT 45.9 % (34.0-46.0); HGB 15.4 gm/dL (11.4-16.0); Lymphocytes % (A) 22 %; MCH 32.5 pg (25.0-35.0); MCHC 33.6 g/dL (31.0-37.0); MCV 96.7 fL (80.0-100.0); Mean Platelet Volume 8.1; Monocytes # (A) 0.5 k/uL (0-1.0); Monocytes % (A) 5 %; Neutrophils # (A) 6.1 k/uL (1.3-7.7); Neutrophils % (A) 69 %; Platelet Count 178 k/uL (150-450); RBC 4.74 m/uL (3.80-5.40); RDW 12.1 % (11.5-15.5); WBC 8.9 k/uL (3.8-10.6)
[2021-06-30 07:26] LABS: ALT 41 U/L (4-34); AST 71 U/L (14-36); African American GFR (CKD) >90 (>60 ml/min/1.73 sqM); Albumin 3.8 g/dL (3.5-5.0); Albumin/Globulin Ratio 1.3; Alkaline Phosphatase 65 U/L (38-126); Anion Gap 8 mmol/L; Blood Urea Nitrogen 15 mg/dL (7-17); Calcium 9.2 mg/dL (8.4-10.2); Carbon Dioxide 26 mmol/L (22-30); Chloride 102 mmol/L (98-107); Globulin 2.9 g/dL; Glucose 316 mg/dL (74-99); Non-African American GFR(CKD) 81 (>60 ml/min/1.73 sqM); Potassium 3.5 mmol/L (3.5-5.1); Sodium 136 mmol/L (137-145); Total Bilirubin 1.1 mg/dL (0.2-1.3); Total Protein 6.7 g/dL (6.3-8.2)
[2021-06-30] MEDS: ASPIRIN 81 MG PO SCH (09:28)
[2021-06-30] MEDS: DULoxetine HCL 60 MG CAPSULE.DR PO SCH (09:28)
[2021-06-30] MEDS: INSULIN ASPART (NovoLOG) 100 UNIT/ML VIAL SQ SCH ×3 (09:28→17:53)
[2021-06-30] MEDS: GABAPENTIN 300 MG CAP PO SCH (09:28)
[2021-06-30] MEDS: RIVAROXABAN 2.5 MG TABLET PO SCH (09:29)
[2021-06-30] MEDS: PHENYTOIN SODIUM EXTENDED 100 MG CAP PO SCH (10:03)
[2021-06-30] MEDS: VANCOMYCIN 1,500 MG in SODIUM CHLORIDE 0.9% 250 ML IVPB SCH (10:03)
[2021-06-30 11:10] LABS: Glucose,Whole Blood 316 mg/dL (75-99)
[2021-06-30 11:38] VITALS: BP 168/75; PULSE 65; RESP 16
--- NOTE | 2021-06-30 11:58 | P.DS ---
Providers Date of admission: 06/27/21 15:08 Expected date of discharge: 06/30/21 Attending physician: Wayne Escalante MD Consults: 06/27/21 15:10 Consult Physician Routine Consulting Provider: Hadley Wilson Consult Reason/Comments: stroke activation, possible seizure Do you want consulting provider notified?: Yes Primary care physician: Stated None Hospital Course: 80 year all female with past medical history of remote seizures admitted to the hospital with altered mental status and 2 fusions and suspected seizure patient has been loaded with Dilantin the patient on prednisone has not been taking her medication for last few months patient continued to be confused during most of the hospital stay but the patient is alert oriented 3 today was to go home doesn't want to go to any rehab at this time Patient has been evaluated by neurology advised to continue Dilantin 200 mg extended release twice a day Patient also was found to have UTI Constitutional: No acute distress, conversant, pleasant Eyes: Anicteric sclerae, moist conjunctiva, no lid-lag PERRLA ENMT: NC/AT Oropharynx clear, no erythema, exudates Neck: Supple, FROM, no masses, or JVD No carotid bruits No thyromegaly Lungs: Clear to auscultation Clear to percussion Normal respiratory effort, no accessory muscle use Cardiovascular: Heart regular in rate and rhythm, No murmurs, gallops, or rubs No peripheral edema Abdominal: Soft Nontender, no guarding, rebound or rigidity Abdomen moving with respiration Normoactive bowel sounds No hepatomegaly, No splenomegaly No palpable mass No abdominal wall hernia noted Skin: Normal temperature, tone, texture, turgor No induration No subcutaneous nodules No rash, lesions No ulcers Extremities: No digital cyanosis No clubbing Pedal pulses intact and symmetrical Radial pulses intact and symmetrical Normal gait and station No calf tenderness Psychiatric:Alert and oriented to person, place and time Appropriate affect Intact judgement Neuro: Muscles Strength 5/5 in all 4 extremities Sensation to light touch grossly present throughout Cranial nerves II-XII grossly intact No focal sensory deficits Discharge plan UTI with metabolic encephalopathic resolved continues to do anything at Seizures suspected continue Dilantin follow-up with neurology as an outpatient Patient Condition at Discharge: Serious Plan - Discharge Summary Discharge Rx Participant: No New Discharge Prescriptions: New Cefdinir 300 mg PO Q12HR 7 Days #14 cap Continue Insulin Lispro [humaLOG Kwikpen] See Protocol SQ ACHS MDD 60 UNITS Doxepin HCl 50 mg PO HS DULoxetine HCL [Cymbalta] 60 mg PO BID Atorvastatin Calcium [Lipitor] 80 mg PO W/SUPPER Magnesium 250 mg PO DAILY Aspirin EC [Ecotrin Low Dose] 81 mg PO DAILY Insulin Glargine,Hum.rec.anlog [Lantus Solostar Pen] 30 unit SQ BID@1200,2100 atenoloL 100 mg PO HS Gabapentin 800 mg PO DIRECTED Triamterene-Hctz 37.5-25Mg [Maxzide 37.5-25] 1 tab PO DIRECTED Rivaroxaban [Xarelto] 2.5 mg PO DIRECTED Cholecalciferol [Vitamin D3 (125 Mcg = 5000 Iu)] 125 mcg PO DAILY Glucosamine HCl/Chondroitin Vincent [Glucosamine-Chondroitin Cap] 1 cap PO DAILY Changed Phenytoin Sodium Extended [Dilantin] 200 mg PO BID #60 Discharge Medication List Aspirin EC [Ecotrin Low Dose] 81 mg PO DAILY 06/27/21 [History] Atorvastatin Calcium [Lipitor] 80 mg PO W/SUPPER 06/27/21 [History] Cholecalciferol [Vitamin D3 (125 Mcg = 5000 Iu)] 125 mcg PO DAILY 06/27/21 [History] DULoxetine HCL [Cymbalta] 60 mg PO BID 06/27/21 [History] Doxepin HCl 50 mg PO HS 06/27/21 [History] Gabapentin 800 mg PO DIRECTED 06/27/21 [History] Glucosamine HCl/Chondroitin Vincent [Glucosamine-Chondroitin Cap] 1 cap PO DAILY 06/27/21 [History] Insulin Glargine,Hum.rec.anlog [Lantus Solostar Pen] 30 unit SQ BID@1200,2100 06/27/21 [History] Insulin Lispro [humaLOG Kwikpen] See Protocol SQ ACHS MDD 60 UNITS 06/27/21 [History] Magnesium 250 mg PO DAILY 06/27/21 [History] Rivaroxaban [Xarelto] 2.5 mg PO DIRECTED 06/27/21 [History] Triamterene-Hctz 37.5-25Mg [Maxzide 37.5-25] 1 tab PO DIRECTED 06/27/21 [History] atenoloL 100 mg PO HS 06/27/21 [History] Cefdinir 300 mg PO Q12HR 7 Days #14 cap 06/30/21 [Rx] Phenytoin Sodium Extended [Dilantin] 200 mg PO BID #60 06/30/21 [Rx] Follow up Appointment(s)/Referral(s): [facility], [NON-STAFF] - 1 Week None,Stated [Primary Care Provider] - 1-2 days
--- NOTE | 2021-06-30 15:55 | CDI ---
Documentation Clarification Form Date: 06/30/2021 03:38:16 PM From: Sharona Mcgill RN, CCDS Admit Date: 06/27/2021 03:08:00 PM Patient Name: Vicky Beard Visit Number: [id number] Discharge Date: ATTENTION: The Clinical Documentation Specialists (CDI) and [facility] Coding Staff appreciate your assistance in clarifying documentation. Please respond to the clarification below the line at the bottom and electronically sign. The CDI & [facility] Coding staff will review the response and follow-up if needed. Please note: Queries are made part of the Legal Health Record. If you have any questions, please contact the author of this message via ITS. Dr. Wayne Escalante Atrial Fibrillation is documented in the H/P with ongoing treatment. . Additional clarification regarding the type of atrial fibrillation is requested. History/Risk Factors: Atrial Fibrillation, Seizure Clinical Indicators: 80-year-old male present with altered mental status suspected seizure. Per H/P questionable atrial fibrillation. 06/27 EKG/telemetry: Sinus rhythm vent rate 93 with occasional ventricular premature complexes. Borderline left axis deviation possible right ventricular conduction delay. 06/27 vital sign: 148/95 98 16 Treatment: Monitor PT/INR x1 (on admission) Xarelto 2.5 MG PO BID 06/27-06/30 Please clarify the type of atrial fibrillation, if known: [ ] Chronic [ ] Permanent [ ] Paroxysmal [ ] Persistent [ ] Other, please specify [ ] Unable to determine (Template Last Revised: September 2020) Paroxysmal MTDD
[2021-06-30 17:08] LABS: Glucose,Whole Blood 309 mg/dL (75-99)
[2021-06-30] MEDS: ATORVASTATIN 80 MG TAB PO SCH (17:53)
[2021-07-01] MEDS ORDERED: VANCOMYCIN TROUGH DUE 1 EACH MISC MISCELLANE ONE (07:00)
== END 2021-06-30 18:40 | disposition home or self-care (01) | DRG 100 ==
LOC: EC 13:13 → 3SCARD 15:08 → 5NMEDONC 06-29 18:16
PROVIDERS: ADMIT Internal Medicine; ATTEND Internal Medicine
DX: G40.909 Epilepsy, unspecified, not intractable, without status epilepticus (principal); G93.41 Metabolic encephalopathy; N39.0 Urinary tract infection, site not specified; E87.2 Acidosis; R47.01 Aphasia; E03.9 Hypothyroidism, unspecified; I10 Essential (primary) hypertension; I48.0 Paroxysmal atrial fibrillation; Z79.01 Long term (current) use of anticoagulants; Z79.82 Long term (current) use of aspirin; Z79.899 Other long term (current) drug therapy; Z91.14 Patient's other noncompliance with medication regimen; E13.40 Other specified diabetes mellitus with diabetic neuropathy, unspecified; Z79.4 Long term (current) use of insulin; Z88.5 Allergy status to narcotic agent; Z20.822 Contact with and (suspected) exposure to COVID-19
CPT/HCPCS: 36415; 70450; 70496; 70498; 70553; 71045; 80053; 80061; 80185; 80186; 80202; 80306; 81001; 82140; 83605; 84484; 85025; 85610; 85730; 87040; 87077; 87086; 87186; 87635; 93005; 95816; 96374; 99291